=== PATIENT | male | born 1970 | race Caucasian/White ===

== ENCOUNTER 2020-11-20 17:42 | Observation (INO) ==
[2020-11-20] MEDS ORDERED: Ondansetron 4 MG/2 ML VIAL IVP PRN (23:12)
[2020-11-20] MEDS ORDERED: Naloxone 0.4 MG/ML INJ IVP PRN (23:12)
[2020-11-20] MEDS ORDERED: Potassium Chloride 40 MEQ, Lidocaine 1% 2 ML in 0.9 % Sodium Chloride 500 ML IVPB ONE (23:25)
[2020-11-21] MEDS ORDERED: Ipratropium/Albuterol Neb 3 ML IH PRN
[2020-11-21] MEDS: 0.9 % Sodium Chloride 1,000 ML IVC SCH ×2 (00:35→11:09)
[2020-11-21 01:10] LABS: Alanine Aminotransferase 12 Units/L (7-52); Albumin 3.5 g/dL (3.5-5.7); Albumin/Globulin Ratio 1.3 (1.1-2.2); Alkaline Phosphatase 78 Units/L (34-104); Aspartate Amino Transferase 14 Units/L (13-39); BUN/Creatinine Ratio 15 (6-26); Bilirubin,Total 0.6 mg/dL (0.3-1.0); Blood Urea Nitrogen 10 mg/dL (6-20); Calcium 8.5 mg/dL (8.6-10.3); Carbon Dioxide 27 mEq/L (23-29); Chloride 101 mEq/L (98-107); Globulin 2.6 g/dL (2.4-3.5); Glucose 100 mg/dL (70-105); Magnesium 1.6 mg/dL (1.6-2.6); Osmolality,Calculated 281 (280-300); Potassium 3.1 mEq/L (3.5-5.1); Sodium 136 mEq/L (136-145); Total Protein 6.1 g/dL (6.4-8.9); eGFR For African Americans > 60 (> 60); eGFR For Non-African Americans > 60 (> 60)
[2020-11-21 01:22] LABS: INR 1.1; Prothrombin Time 12.4 Seconds (9.4-12.1)
[2020-11-21 01:25] LABS: Hematocrit 35.9 % (37.5-50.1); Hemoglobin 12.5 g/dL (12.9-16.9); Mean Corpuscular HGB Conc 34.8 g/dL (31.6-35.5); Mean Corpuscular Hemoglobin 32.8 pg (28.0-33.3); Mean Corpuscular Volume 94.2 fL (83.0-100.0); Mean Platelet Volume 8.6 fL (9.4-12.4); Platelet Count 330 K/mcL (140-400); Red Blood Count 3.81 M/mcL (4.19-5.50); Red Cell Distribution Width 12.4 % (11.5-14.5)
[2020-11-21 02:05] LABS: Lymphocytes # 1.1 K/mcL (0.6-4.6); Monocytes # 0.6 K/mcL (0.0-1.3); Neutrophils # 5.3 K/mcL (1.6-8.9); Platelet Estimate Normal (Normal)
[2020-11-21] MEDS ORDERED: Nicotine 14 MG PATCH.TD24 TD SCH (11:30)
[2020-11-21 15:01] VITALS: BP 131/85; PULSE 80; TEMP 98.3; O2SAT 95
[2020-11-21 15:23] LABS: Bilirubin,Urine Negative (Negative); Blood,Urine Negative (Negative); Clarity,Urine Clear (Clear); Color,Urine Yellow (Yellow); Glucose,Urine (UA) Normal (Normal); Ketones,Urine Negative (Negative); Leukocyte Esterase,Urine Negative (Negative); Nitrite,Urine Negative (Negative); Protein,Urine Negative (Neg-Trace); Specific Gravity,Urine 1.017 (1.010-1.025); Urobilinogen,Urine Normal (Normal)
[2020-11-21 15:36] LABS: Amphetamine Screen,Urine Negative ng/mL (Cutoff=1000); Barbiturate Screen,Urine Negative ng/mL (Cutoff=200); Benzodiazepines Screen,Urine Negative ng/mL (Cutoff=200); Cannabinoid Screen,Urine Positive ng/mL (Cutoff = 50); Cocaine Screen,Urine Negative ng/mL (Cutoff= 300); Opiate Screen,Urine Negative ng/mL (Cutoff=300); Phencyclidine Screen,Urine Negative ng/mL (Cutoff=25)
== END 2020-11-21 19:04 | disposition home or self-care (01) ==
LOC: 3ANU → SUATTDRO 22:27
PROVIDERS: ADMIT Pharmacist; ATTEND Internal Medicine

== ENCOUNTER 2022-02-18 14:11 | Inpatient (IN) ==
[2022-02-18 16:17] LABS: Basophils # 0.1 K/mcL (0.0-0.2); Basophils % 0.8 %; Eosinophils # 0.1 K/mcL (0.0-0.6); Eosinophils % 1.5 %; Hematocrit 40.9 % (37.5-50.1); Hemoglobin 14.2 g/dL (12.9-16.9); Immature Granulocytes % 0.5 % (0-4); Lymphocytes # 1.4 K/mcL (0.6-4.6); Lymphocytes % 21.8 %; Mean Corpuscular HGB Conc 34.7 g/dL (31.6-35.5); Mean Corpuscular Hemoglobin 34.4 pg (28.0-33.3); Mean Platelet Volume 8.7 fL (9.4-12.4); Monocytes # 0.9 K/mcL (0.0-1.3); Monocytes % 13.1 %; Platelet Count 271 K/mcL (140-400); Red Blood Count 4.13 M/mcL (4.19-5.50); Red Cell Distribution Width 13.2 % (11.5-14.5); Segmented Neutrophils % 62.3 %; White Blood Count 6.5 K/mcL (4.3-11.1)
[2022-02-18] MEDS ORDERED: Iopamidol - 370 500 ML MLS IVP ONE ×2 (16:38→20:09)
[2022-02-18 16:39] LABS: BUN/Creatinine Ratio 10 (6-26); Blood Urea Nitrogen 7 mg/dL (6-20); Calcium 9.6 mg/dL (8.6-10.3); Carbon Dioxide 24 mEq/L (23-29); Chloride 103 mEq/L (98-107); Glucose 131 mg/dL (70-105); Osmolality,Calculated 282 (280-300); Potassium 2.9 mEq/L (3.5-5.1); Sodium 136 mEq/L (136-145); Troponin I < 0.03 ng/mL (< 0.04)
[2022-02-18] MEDS ORDERED: Aspirin 325 MG TABLET PO ONE (16:42)
[2022-02-18] MEDS: Nitroglycerin 0.4 MG TAB.SUBL SL PRN ×3 (17:25→17:44)
[2022-02-18] MEDS ORDERED: *HR* Ticagrelor 90 MG TABLET PO ONE (18:26)
[2022-02-18] MEDS ORDERED: *HR* Heparin 5,000 UNIT/ML VIAL IVP ONE (18:28)
[2022-02-18] MEDS ORDERED: Morphine Sulfate 2 MG/ML SYRINGE IVP ONE (18:30)
[2022-02-18] MEDS ORDERED: Aspirin 81 MG TAB.CHEW ONE (18:31)
[2022-02-18] MEDS ORDERED: 0.9 % Sodium Chloride 1,000 ML ONE ×2 (18:32→18:57)
[2022-02-18 18:57] LABS: Influenza A PCR Negative (Negative); Influenza B PCR Negative (Negative); Resp. Syncytial Virus PCR Negative (Negative)
[2022-02-18] MEDS ORDERED: *HR* FentaNYL (PF) 100 MCG/2 ML VIAL ONE (18:57)
[2022-02-18] MEDS ORDERED: *HR* Heparin 10,000 UNIT/10 ML VIAL ONE (18:57)
[2022-02-18] MEDS ORDERED: *HR* Midazolam HCl 2 MG/2 ML VIAL ONE (18:57)
[2022-02-18] MEDS ORDERED: Nitroglycerin 1,000 MCG/5 ML VIAL IV ONE (18:58)
[2022-02-18] MEDS ORDERED: Heparin 1,000 UNITS/500 mL 500 ML ONE (18:58)
[2022-02-18] MEDS ORDERED: Iopamidol - 370 200 ML INFUS..BTL ONE (18:58)
[2022-02-18 19:06] LABS: SARS-CoV-2 by PCR (In House) Negative (Negative)
[2022-02-18] MEDS ORDERED: Furosemide 40 MG/4 ML VIAL ONE (19:21)
[2022-02-18] MEDS ORDERED: Naloxone 0.4 MG/ML INJ IVP PRN (20:18)
[2022-02-18] MEDS ORDERED: Melatonin 3 MG TABLET PO PRN (20:18)
[2022-02-18] MEDS ORDERED: *HR* HYDROcodone/Acet 5/325 mg TABLET PO PRN (20:18)
[2022-02-18] MEDS ORDERED: Acetaminophen 325 MG TABLET PO PRN (20:18)
[2022-02-18] MEDS ORDERED: Mag Hydrox/Al Hydrox/Simeth 30 ML UDC PO PRN (20:18)
[2022-02-18] MEDS ORDERED: Ondansetron 4 MG/2 ML VIAL IVP PRN (20:18)
[2022-02-18] MEDS ORDERED: *HR* OxyCODONE Immed Rel 5 MG TABLET PO PRN (20:18)
[2022-02-18] MEDS ORDERED: D5% in Water 1,000 ML IVC PRN (20:22)
[2022-02-18] MEDS ORDERED: Dextrose Gel 15 GM/37.5 ML TUBE PO PRN ×2 (20:22)
[2022-02-18] MEDS ORDERED: Morphine Sulfate 2 MG/ML SYRINGE IVP PRN (20:22)
[2022-02-18] MEDS ORDERED: *HR* Dextrose 50 % in Water (Syg) 50 ML SYRINGE IVP PRN (20:22)
[2022-02-18] MEDS ORDERED: *HR* LORazepam 2 MG/ML VIAL IVP ONE (20:23)
[2022-02-18] MEDS ORDERED: methylPREDNISolone 125 MG/2 ML VIAL IVP ONE (20:24)
[2022-02-18] MEDS ORDERED: *HR* Heparin 5,000 UNIT/ML VIAL IVP PRN ×2 (20:27)
[2022-02-18] MEDS ORDERED: Heparin 25,000UNIT/250ML 1/2NS 25,000 UNIT/250 ML IV.SOLN IVC SCH (20:30)
[2022-02-18] MEDS ORDERED: Dexmedetomidine HCl 400 MCG/100 ML MLS IVC SCH (20:45)
[2022-02-18 21:12] LABS: VBG HCO3 24 mEq/L (21-27); VBG PCO2 33 mmHg (41-51); VBG PH 7.47 pH Units (7.32-7.42); VBG PO2 95 mmHg (25-50)
[2022-02-18 21:17] LABS: Albumin 4.1 g/dL (3.5-5.7); Albumin/Globulin Ratio 1.4 (1.1-2.2); Bilirubin,Direct 0.2 mg/dL (0.0-0.2); Bilirubin,Indirect 0.4 mg/dL (0.0-1.0); Bilirubin,Total 0.6 mg/dL (0.3-1.0); Globulin 2.9 g/dL (2.4-3.5)
[2022-02-18] MEDS: Ipratropium/Albuterol Neb 3 ML IH SCH ×2 (21:22→23:10)
[2022-02-18 22:25] LABS: INR 1.3; Prothrombin Time 14.1 Seconds (9.4-12.1)
[2022-02-18 22:46] LABS: Activated Partial Thrombo Time > 360.0 Seconds (26.0-36.0)
[2022-02-18 22:47] LABS: Heparin anti-factor XA UFH 1.51 IU/mL (0.30-0.70)
[2022-02-18] MEDS ORDERED: *HR* LORazepam 2 MG/ML VIAL IVP PRN (23:53)
[2022-02-19] MEDS: MethylPREDNISolone 40 MG/ML VIAL IVP SCH ×3 (00:44→20:01)
[2022-02-19] MEDS: Insulin LISPRO 300 UNITS/3 ML VIAL SUBQ SCH ×4 (00:44→17:02)
[2022-02-19] MEDS: Ipratropium/Albuterol Neb 3 ML IH SCH ×6 (03:08→23:24)
[2022-02-19] MEDS: *HR* Heparin 5,000 UNIT/ML VIAL SQ SCH ×3 (05:42→20:02)
[2022-02-19] MEDS: Aspirin Enteric Coated 81 MG Tablet PO SCH (07:44)
[2022-02-19 08:06] LABS: Hematocrit 38.1 % (37.5-50.1); Hemoglobin 13.2 g/dL (12.9-16.9); Immature Granulocytes % 0.3 % (0-4); Lymphocytes # 0.4 K/mcL (0.6-4.6); Lymphocytes % 10.8 %; Mean Corpuscular HGB Conc 34.6 g/dL (31.6-35.5); Mean Corpuscular Hemoglobin 33.8 pg (28.0-33.3); Mean Corpuscular Volume 97.4 fL (83.0-100.0); Mean Platelet Volume 8.6 fL (9.4-12.4); Monocytes # 0.1 K/mcL (0.0-1.3); Monocytes % 1.4 %; Neutrophils # 3.2 K/mcL (1.6-8.9); Platelet Count 269 K/mcL (140-400); Red Blood Count 3.91 M/mcL (4.19-5.50); Red Cell Distribution Width 13.2 % (11.5-14.5); Segmented Neutrophils % 87.5 %; White Blood Count 3.6 K/mcL (4.3-11.1)
[2022-02-19 08:12] LABS: VBG HCO3 23 mEq/L (21-27); VBG Ionized Calcium 1.08 mmol/L (1.15-1.35); VBG PCO2 33 mmHg (41-51); VBG PH 7.45 pH Units (7.32-7.42); VBG PO2 115 mmHg (25-50)
[2022-02-19 08:15] LABS: INR 1.1; Prothrombin Time 12.3 Seconds (9.4-12.1)
[2022-02-19 08:18] LABS: Activated Partial Thrombo Time 28.8 Seconds (26.0-36.0)
[2022-02-19 08:26] LABS: Alanine Aminotransferase 40 Units/L (7-52); Albumin 4.1 g/dL (3.5-5.7); Albumin/Globulin Ratio 1.4 (1.1-2.2); Alkaline Phosphatase 100 Units/L (34-104); Aspartate Amino Transferase 43 Units/L (13-39); BUN/Creatinine Ratio 13 (6-26); Bilirubin,Direct 0.1 mg/dL (0.0-0.2); Bilirubin,Indirect 0.5 mg/dL (0.0-1.0); Bilirubin,Total 0.6 mg/dL (0.3-1.0); Blood Urea Nitrogen 9 mg/dL (6-20); Carbon Dioxide 21 mEq/L (23-29); Chloride 103 mEq/L (98-107); Globulin 2.9 g/dL (2.4-3.5); Glucose 144 mg/dL (70-105); Magnesium 1.4 mg/dL (1.6-2.6); Osmolality,Calculated 283 (280-300); Phosphorous 3.4 mg/dL (2.7-4.5); Potassium 3.4 mEq/L (3.5-5.1); Sodium 136 mEq/L (136-145)
[2022-02-19] MEDS ORDERED: *HR* LORazepam 2 MG/ML VIAL IVP ONE (10:41)
[2022-02-19] MEDS ORDERED: *HR* Midazolam HCl 5 MG/5 ML VIAL IVP ONE (10:41)
[2022-02-19] MEDS ORDERED: *HR* LORazepam 2 MG/ML VIAL IVP PRN (12:25)
[2022-02-19] MEDS ORDERED: Albuterol 2.5 MG/3 ML NEBULIZER IH PRN (12:32)
[2022-02-19] MEDS: Doxycycline 100 MG CAPSULE PO SCH ×2 (13:34→20:01)
[2022-02-19] MEDS: Thiamine (B-1) 100 MG, Folic Acid 1 MG, MVI, adult with vitamin K 10 ML in 0.9 % Sodi... IVPB SCH (17:21)
[2022-02-20] MEDS: Insulin LISPRO 300 UNITS/3 ML VIAL SUBQ SCH ×2 (00:22→05:50)
[2022-02-20] MEDS: Ipratropium/Albuterol Neb 3 ML IH SCH ×5 (04:03→20:22)
[2022-02-20] MEDS: *HR* Heparin 5,000 UNIT/ML VIAL SQ SCH ×3 (05:48→21:06)
[2022-02-20] MEDS: Aspirin Enteric Coated 81 MG Tablet PO SCH (08:58)
[2022-02-20] MEDS: MethylPREDNISolone 40 MG/ML VIAL IVP SCH (08:58)
[2022-02-20] MEDS: Doxycycline 100 MG CAPSULE PO SCH ×2 (08:58→21:06)
[2022-02-20 11:06] LABS: Basophils % 0.1 %; Hematocrit 36.9 % (37.5-50.1); Hemoglobin 12.6 g/dL (12.9-16.9); Immature Granulocytes % 0.6 % (0-4); Lymphocytes # 0.6 K/mcL (0.6-4.6); Lymphocytes % 3.8 %; Mean Corpuscular HGB Conc 34.1 g/dL (31.6-35.5); Mean Corpuscular Hemoglobin 33.6 pg (28.0-33.3); Mean Corpuscular Volume 98.4 fL (83.0-100.0); Mean Platelet Volume 8.7 fL (9.4-12.4); Monocytes % 7.9 %; Neutrophils # 12.7 K/mcL (1.6-8.9); Platelet Count 286 K/mcL (140-400); Red Blood Count 3.75 M/mcL (4.19-5.50); Red Cell Distribution Width 13.4 % (11.5-14.5); Segmented Neutrophils % 87.6 %
[2022-02-20 11:09] LABS: Monocytes # 1.2 K/mcL (0.0-1.3); White Blood Count 14.5 K/mcL (4.3-11.1)
[2022-02-20] MEDS: Furosemide 20 MG TABLET PO SCH (11:14)
[2022-02-20 11:27] LABS: Alanine Aminotransferase 32 Units/L (7-52); Albumin/Globulin Ratio 1.4 (1.1-2.2); Alkaline Phosphatase 80 Units/L (34-104); Aspartate Amino Transferase 25 Units/L (13-39); BUN/Creatinine Ratio 15 (6-26); Bilirubin,Direct 0.1 mg/dL (0.0-0.2); Bilirubin,Indirect 0.2 mg/dL (0.0-1.0); Bilirubin,Total 0.3 mg/dL (0.3-1.0); Blood Urea Nitrogen 13 mg/dL (6-20); Calcium 9.4 mg/dL (8.6-10.3); Carbon Dioxide 23 mEq/L (23-29); Chloride 104 mEq/L (98-107); Globulin 2.9 g/dL (2.4-3.5); Glucose 142 mg/dL (70-105); Magnesium 1.5 mg/dL (1.6-2.6); Osmolality,Calculated 289 (280-300); Sodium 138 mEq/L (136-145); Total Protein 6.9 g/dL (6.4-8.9)
[2022-02-20] MEDS: Thiamine (B-1) 100 MG, Folic Acid 1 MG, MVI, adult with vitamin K 10 ML in 0.9 % Sodi... IVPB SCH (18:45)
[2022-02-21] MEDS: Ipratropium/Albuterol Neb 3 ML IH SCH ×3 (00:40→07:31)
[2022-02-21] MEDS: *HR* Heparin 5,000 UNIT/ML VIAL SQ SCH (05:49)
[2022-02-21] MEDS: Aspirin Enteric Coated 81 MG Tablet PO SCH (08:11)
[2022-02-21] MEDS: Furosemide 20 MG TABLET PO SCH (08:11)
[2022-02-21] MEDS: Doxycycline 100 MG CAPSULE PO SCH (08:12)
[2022-02-21] MEDS ORDERED: amLODIPine 5 MG TABLET PO SCH (09:00)
[2022-02-21] MEDS ORDERED: predniSONE 20 MG TABLET PO SCH (09:00)
[2022-02-21 09:16] LABS: Basophils % 0.1 %; Eosinophils % 0.1 %; Hematocrit 35.7 % (37.5-50.1); Hemoglobin 12.4 g/dL (12.9-16.9); Immature Granulocytes % 0.6 % (0-4); Lymphocytes # 2.1 K/mcL (0.6-4.6); Lymphocytes % 18.2 %; Mean Corpuscular HGB Conc 34.7 g/dL (31.6-35.5); Mean Corpuscular Hemoglobin 34.1 pg (28.0-33.3); Mean Corpuscular Volume 98.1 fL (83.0-100.0); Mean Platelet Volume 8.8 fL (9.4-12.4); Monocytes # 0.9 K/mcL (0.0-1.3); Monocytes % 7.8 %; Neutrophils # 8.5 K/mcL (1.6-8.9); Platelet Count 279 K/mcL (140-400); Red Blood Count 3.64 M/mcL (4.19-5.50); Red Cell Distribution Width 13.6 % (11.5-14.5); Segmented Neutrophils % 73.2 %; White Blood Count 11.6 K/mcL (4.3-11.1)
[2022-02-21 09:30] VITALS: BP 136/86; PULSE 81; TEMP 98; O2SAT 92
[2022-02-21 09:31] LABS: Alanine Aminotransferase 31 Units/L (7-52); Albumin 3.8 g/dL (3.5-5.7); Albumin/Globulin Ratio 1.5 (1.1-2.2); Alkaline Phosphatase 75 Units/L (34-104); Aspartate Amino Transferase 26 Units/L (13-39); BUN/Creatinine Ratio 18 (6-26); Bilirubin,Direct 0.1 mg/dL (0.0-0.2); Bilirubin,Indirect 0.3 mg/dL (0.0-1.0); Bilirubin,Total 0.4 mg/dL (0.3-1.0); Blood Urea Nitrogen 13 mg/dL (6-20); Calcium 9.5 mg/dL (8.6-10.3); Carbon Dioxide 25 mEq/L (23-29); Chloride 104 mEq/L (98-107); Globulin 2.6 g/dL (2.4-3.5); Glucose 151 mg/dL (70-105); Magnesium 1.4 mg/dL (1.6-2.6); Osmolality,Calculated 289 (280-300); Potassium 2.7 mEq/L (3.5-5.1); Sodium 138 mEq/L (136-145); Total Protein 6.4 g/dL (6.4-8.9)
[2022-02-21] MEDS ORDERED: Budesonide/Formoterol 160/4.5 1 PUFF INH IH SCH (10:00)
[2022-02-21 10:13] LABS: Estimated Average Glucose 103 mg/dl; Hemoglobin A1C 5.2 %
[2022-02-21] MEDS ORDERED: Magnesium Oxide 400 MG TABLET PO SCH (10:15)
== END 2022-02-21 10:42 | disposition home or self-care (01) | DRG 191 ==
LOC: EMEROOARM 14:11 → ICNU 19:15 → SUATTDRO 20:14 → ICNU 20:14 → 2ANU 02-19 12:57
PROVIDERS: ADMIT Internal Medicine; ATTEND Family Medicine